=== PATIENT | male | born 1980 | race Caucasian/White ===

== ENCOUNTER 2016-06-01 23:40 | Emergency (ER) | payer OTHER ==
--- NOTE | 2016-06-02 03:09 | ED NURSING NOTES ---
Clinical Report - Nurses [facility] [address] [place] [address] 06/01/2016 23:41 Patient: SILVIA OVERTON TRIAGE Triage time 23:46 Jun 01 2016. Acuity: LEVEL 3. --23:49 Mikey Winter R.N. 23:45 06/01/16. BP: 65. HR: 63. RR: 18. O2 saturation: 100%. Temp: 98.2 F. Pain level now 02/10. --23:49 Mikey Winter R.N. Chief Complaint: ABDOMINAL PAIN. --03:48 Mikey Winter R.N. Weight: 63.5 kg stated. Height/Length: 68 inches Per Patient. BMI: 21.3. --23:48 Mikey Winter R.N. Medications None. --23:48 Mikey Winter R.N. Allergies Heparin. Icy Hot. Mushrooms. NSAIDs. Sulfa Antibiotics. --23:48 Mikey Winter R.N. History Arrived by private vehicle. ( Pt reports emesis since thursday, is poor historian, hx of asthma, pt complaing of RLQ abd pain is tearful, pt girlfriend states this has been going on for a week.). SOCIAL HX: Never smoker. History of drug use: marijuana. No alcohol use. --23:49 Mikey Winter R.N. ADDITIONAL SURGERIES: Colonoscopy. Cranial surgery. Craniotomy. Hernia Repair. --23:49 Mikey Winter R.N. Interventions ID band on patient. To treatment room. --23:49 Mikey Winter R.N. PHYSICAL ASSESSMENT GENERAL / NEURO / PSYCH: Alert. Oriented X 4. Appears in distress. RESPIRATORY: Respirations not labored. Breath sounds within normal limits. GI / : Abdominal tenderness in the right lower quadrant. Bowel sounds within normal limits. SKIN: Skin is warm and dry. --23:50 Mikey Winter R.N. NURSING PROGRESS NOTES engine monitor placed on patient. Patient gowned. Two patient identifiers checked. Side rails up x 1. Bed placed in lowest position. Brakes of chair on. Patient ready for evaluation- chart flagged and ED physician notified. --23:51 Mikey Winter R.N. 23:53 06/01/2016 Site #1 started via IV in the left antecubital space with an 18g angiocath, with aseptic technique and good blood return; one attempt. Blood drawn: rainbow set. Labeled in the presence of the patient. Saline lock flushed with saline (IV start Carlos). --23:58 Mikey Winter R.N. 23:59 06/01/2016 Started bag #1 1000 mL IV Fluids IV NS (Saline); bolus of 1000 mL wide open via site #1. Allergies verified and confirmed 5 rights. IV patency established. IV site checked: no pain, redness, or swelling. IV flushed thoroughly pre- and post-medication administration. --23:59 Mikey Winter R.N. 23:59 06/01/2016 Zofran (Ondansetron HCl) IVP 4 mg given over 2 minute(s) via site #1. Allergies verified and confirmed 5 rights. IV patency established. IV site checked: no pain, redness, or swelling. IV flushed thoroughly pre- and post-medication administration. IVP given by RN. --23:59 Mikey Winter R.N. ( Pt resting in bed, EKG performed, pt minimal relief from zofran). --00:14 Mikey Winter R.N. 00:36 06/02/2016 Morphine IVP 4 mg given over 2 minute(s) via site #1. Allergies verified, confirmed 5 rights and sedative warning given to the patient. IV patency established. IV site checked: no pain, redness, or swelling. IV flushed thoroughly pre- and post-medication administration. IVP given by RN. --00:36 Mikey Winter R.N. 01:13 06/02/2016 Dilaudid (HYDROmorphone HCl PF) IVP 1 mg given over 2 minute(s) via site #1. Allergies verified, confirmed 5 rights and sedative warning given to the patient. IV patency established. IV site checked: no pain, redness, or swelling. IV flushed thoroughly pre- and post-medication administration. IVP given by RN. --01:13 Mikey Winter R.N. 01:23 06/02/16. BP: 139/63. HR: 70. RR: 18. O2 saturation: 95%. --01:23 Mikey Winter R.N. 03:42 06/02/2016 SOLU-MEDROL (MethylPREDNISolone Sodium Succ) IVP 125 mg given over 2 minute(s) via site #1. Allergies verified and confirmed 5 rights. IV patency established. IV site checked: no pain, redness, or swelling. IV flushed thoroughly pre- and post-medication administration. IVP given by RN. --03:42 Mikey Winter R.N. DISPOSITION / DISCHARGE Departure time: 0343. Discharge instructions provided and reviewed with the patient. Reviewed medication(s) information. Prescription(s) given to the patient. Patient verbalized understanding. The patient was discharged by the physician. He was discharged home and accompanied by family. He left the Emergency Department ambulatory and via private vehicle. Family member driving. ( Pt ambulated on discharge steady on his feet pt verbalized understanding of discharge instructions and follow up care.). --03:47 Mikey Winter R.N. 03:45 06/02/16. BP: 144/68. HR: 94. RR: 18. O2 saturation: 95%. Temp: 97.9 F. Pain level now 9/10. --03:47 Mikey Winter R.N. 03:47 06/02/2016 Site #1 removed upon discharge. Bandaid applied. --03:47 Mikey Winter R.N. Locked/Released at 06/03/2016 3:00 by Mikey Winter R.N.
--- NOTE | 2016-06-02 03:09 | ED CLINICAL REPORT ---
Clinical Report - Physicians/Mid Levels [facility] [address] [place] [address] 06/01/2016 23:41 Patient: SILVIA OVERTON Time Seen: 23:51; initial patient contact. Arrived- By private vehicle. Historian- patient. HISTORY OF PRESENT ILLNESS Chief Complaint: ABDOMINAL PAIN. At its maximum, severity described as moderate. When seen in the E.D., severity described as moderate. Modifying factors. Not worsened by anything. Not relieved by anything. It is described as "pain". No radiation. It is described as located in the right lower quadrant and in the periumbilical area. This started about 3 days ago and is still present (persistent). It was gradual in onset and has been constant. The patient has had nausea, loss of appetite, vomiting and diarrhea. Similar symptoms previously: None. Recent medical care: Not recently seen/assessed. REVIEW OF SYSTEMS No constipation, difficulty with urination or pain with urination. He has had fever and chills. All systems otherwise negative, except as recorded above. PAST HISTORY SURGERY HX: Hernia repair. 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 Crohn's disease. Medications: None. Allergies: Heparin. Icy Hot. Mushrooms. NSAIDs. Sulfa Antibiotics. SOCIAL HISTORY Never smoker. History of drug use: marijuana. No alcohol use. ADDITIONAL NOTES The nursing notes have been reviewed with agreement regarding the chief complaint, PMH and patient medications and allergies. PHYSICAL EXAM Vital Signs: 06/02/2016 01:23 BP: 139/63. HR: 70. RR: 18. O2 saturation: 95%. 06/01/2016 23:45 BP: 65. HR: 63. RR: 18. O2 saturation: 100%. Temp: 98.2 F. Have been reviewed as normal. Appearance: Alert. Oriented X3. Appears to be in pain. Eyes: Eyes normal inspection. ENT: Dry mucous membranes present. CVS: Normal heart rate and rhythm. Heart sounds normal. Respiratory: No respiratory distress. Breath sounds normal. Abdomen: Soft. Moderate tenderness in the right lower quadrant with guarding and rebound tenderness present. Positive obturator and psoas sign. Bowel sounds normal. No organomegaly. No mass. Back: Normal inspection. No CVA tenderness. Skin: Skin warm and dry. Normal skin color. No rash. Extremities: No lower extremity edema. Neuro: Oriented X 3. LABS, X-RAYS, AND EKG EKG: EKG time: (0013). No acute process. No acute ischemia. Normal EKG. Normal sinus rhythm. Rate: 72. Normal P waves. Normal NARA. Normal QRS complex. Normal axis. Normal ST and T waves, QT and QTc. Prior EKG unavailable. The study has been interpreted contemporaneously by me. The study has been independently viewed by me. The EKG appears to be a good tracing. Interpretation time: 0013. Abdominal CT: No specific acute abnormality. Mild diffuse changes in small bowel likely enteritis. Study type: abdomen and pelvis. Abdominal CT performed with IV contrast. Prior studies were not available for comparison. The study was interpreted by the radiologist and discussed with the radiologist. Interpretation time: 02:35. Laboratory Tests: CBC w Diff: (CLARISSE: 06/01/2016 23:52) ( [facility] [place]:05) Final results Test Result Flag Units (Reference) WHITE BLOOD COUNT 7.9 K/uL (4.5-11.5) RED BLOOD COUNT 5.44 M/uL (4.50-5.90) HEMOGLOBIN 15.7 gm/dL (13.5-17.5) HEMATOCRIT 47.2 % (41.0-53.0) MEAN CELL VOLUME 87 fL (80-100) MEAN CORPUSCULAR HGB 29 pg (26-34) MEAN CORPUSCULAR HGB CONC 33 g/dL (31-37) RED CELL DISTRIBUTION WIDTH 12.6 % (11.6-14.8) PLATELET COUNT 273 K/uL (150-400) LYMPH % 38.1 % (25-40) MONO % 4.3 % (3-14) GRANULOCYTE % 57.6 CMP: (CLARISSE: 06/01/2016 23:52) ( [facility] 06/02/2016 00:14) Final results Test Result Flag Units (Reference) GLUCOSE 107 mg/dL (70-110) BUN 26 H mg/dL (7-18) CREATININE 1.1 mg/dL (0.6-1.3) Estimated GFR >60 mL/min Estimated GFR- >60 mL/min Note: Persistent reduction over 3 months in eGFR<60 mL/min/1.73 m2 defines CKD. Patients with eGFR values>=60 mL/min/1.73 m2 may also have CKD if evidence ofpersistent proteinuria. Additional information may be foundat www.kidney.org. SODIUM 142 mmol/L (136-145) POTASSIUM 4.4 mmol/L (3.5-5.1) CHLORIDE 103 mmol/L (98-107) CARBON DIOXIDE 32 mmol/L (21-32) CALCIUM 9.4 mg/dL (8.5-10.1) TOTAL PROTEIN 7.9 g/dL (6.4-8.2) ALBUMIN 4.1 g/dL (3.3-5.0) BILIRUBIN, TOTAL 0.4 mg/dL (0.0-1.0) ALKALINE PHOSPHATASE 56 U/L (46-116) AST (SGOT) 20 U/L (15-37) ALT (SGPT) 19 U/L (12-78) . PROGRESS AND PROCEDURES Course of Care: 06/02/2016 01:23 BP: 139/63. HR: 70. RR: 18. O2 saturation: 95%. Vital Signs: have been reviewed as normal. Disposition: Discharged home in good and improved condition. Condition: good. CLINICAL IMPRESSION Acute viral gastroenteritis with dehydration. Crohn's disease in the small intestine with acute abdominal pain. INSTRUCTIONS Prescription Medications: Zofran (orally disintegrating tablets) 4 mg: take 1 orally every 6 hours as needed for nausea and vomiting. Dispense ten (10). No refill. Substitution is permissible. Dicyclomine 20 mg tablets: take 1 orally every 6 hours as needed for abdominal cramps or abdominal discomfort. Dispense thirty (30). No refill Budesonide EC 3 mg 1 PO TID Disp # 45 No refills. Follow-up: Follow up with your doctor in about two days. Call for an appointment. Screening today revealed the patient's blood pressure to be in the pre-hypertensive range. The patient should follow up with a primary care provider for blood pressure management. (Electronically signed by Donaldo Villegas Dr. 06/02/2016 3:16)
--- NOTE | 2016-06-02 03:09 | ED CLINICAL REPORT ---
Clinical Report - Physicians/Mid Levels [facility] [address] [place] [address] 06/01/2016 23:41 Patient: SILVIA OVERTON Time Seen: 23:51; initial patient contact. Arrived- By private vehicle. Historian- patient. HISTORY OF PRESENT ILLNESS Chief Complaint: ABDOMINAL PAIN. At its maximum, severity described as moderate. When seen in the E.D., severity described as moderate. Modifying factors. Not worsened by anything. Not relieved by anything. It is described as "pain". No radiation. It is described as located in the right lower quadrant and in the periumbilical area. This started about 3 days ago and is still present (persistent). It was gradual in onset and has been constant. The patient has had nausea, loss of appetite, vomiting and diarrhea. Similar symptoms previously: None. Recent medical care: Not recently seen/assessed. REVIEW OF SYSTEMS No constipation, difficulty with urination or pain with urination. He has had fever and chills. All systems otherwise negative, except as recorded above. PAST HISTORY SURGERY HX: Hernia repair. 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 Crohn's disease. Medications: None. Allergies: Heparin. Icy Hot. Mushrooms. NSAIDs. Sulfa Antibiotics. SOCIAL HISTORY Never smoker. History of drug use: marijuana. No alcohol use. ADDITIONAL NOTES The nursing notes have been reviewed with agreement regarding the chief complaint, PMH and patient medications and allergies. PHYSICAL EXAM Vital Signs: 06/02/2016 01:23 BP: 139/63. HR: 70. RR: 18. O2 saturation: 95%. 06/01/2016 23:45 BP: 65. HR: 63. RR: 18. O2 saturation: 100%. Temp: 98.2 F. Have been reviewed as normal. Appearance: Alert. Oriented X3. Appears to be in pain. Eyes: Eyes normal inspection. ENT: Dry mucous membranes present. CVS: Normal heart rate and rhythm. Heart sounds normal. Respiratory: No respiratory distress. Breath sounds normal. Abdomen: Soft. Moderate tenderness in the right lower quadrant with guarding and rebound tenderness present. Positive obturator and psoas sign. Bowel sounds normal. No organomegaly. No mass. Back: Normal inspection. No CVA tenderness. Skin: Skin warm and dry. Normal skin color. No rash. Extremities: No lower extremity edema. Neuro: Oriented X 3. LABS, X-RAYS, AND EKG EKG: EKG time: (0013). No acute process. No acute ischemia. Normal EKG. Normal sinus rhythm. Rate: 72. Normal P waves. Normal NARA. Normal QRS complex. Normal axis. Normal ST and T waves, QT and QTc. Prior EKG unavailable. The study has been interpreted contemporaneously by me. The study has been independently viewed by me. The EKG appears to be a good tracing. Interpretation time: 0013. Abdominal CT: No specific acute abnormality. Mild diffuse changes in small bowel likely enteritis. Study type: abdomen and pelvis. Abdominal CT performed with IV contrast. Prior studies were not available for comparison. The study was interpreted by the radiologist and discussed with the radiologist. Interpretation time: 02:35. Laboratory Tests: CBC w Diff: (CLARISSE: 06/01/2016 23:52) ( [facility] [place] 06/02/2016 [facility]:05) Final results Test Result Flag Units (Reference) WHITE BLOOD COUNT 7.9 K/uL (4.5-11.5) RED BLOOD COUNT 5.44 M/uL (4.50-5.90) HEMOGLOBIN 15.7 gm/dL (13.5-17.5) HEMATOCRIT 47.2 % (41.0-53.0) MEAN CELL VOLUME 87 fL (80-100) MEAN CORPUSCULAR HGB 29 pg (26-34) MEAN CORPUSCULAR HGB CONC 33 g/dL (31-37) RED CELL DISTRIBUTION WIDTH 12.6 % (11.6-14.8) PLATELET COUNT 273 K/uL (150-400) LYMPH % 38.1 % (25-40) MONO % 4.3 % (3-14) GRANULOCYTE % 57.6 CMP: (CLARISSE: 06/01/2016 23:52) ( [facility] 06/02/2016 00:14) Final results Test Result Flag Units (Reference) GLUCOSE 107 mg/dL (70-110) BUN 26 H mg/dL (7-18) CREATININE 1.1 mg/dL (0.6-1.3) Estimated GFR >60 mL/min Estimated GFR- >60 mL/min Note: Persistent reduction over 3 months in eGFR<60 mL/min/1.73 m2 defines CKD. Patients with eGFR values>=60 mL/min/1.73 m2 may also have CKD if evidence ofpersistent proteinuria. Additional information may be foundat www.kidney.org. SODIUM 142 mmol/L (136-145) POTASSIUM 4.4 mmol/L (3.5-5.1) CHLORIDE 103 mmol/L (98-107) CARBON DIOXIDE 32 mmol/L (21-32) CALCIUM 9.4 mg/dL (8.5-10.1) TOTAL PROTEIN 7.9 g/dL (6.4-8.2) ALBUMIN 4.1 g/dL (3.3-5.0) BILIRUBIN, TOTAL 0.4 mg/dL (0.0-1.0) ALKALINE PHOSPHATASE 56 U/L (46-116) AST (SGOT) 20 U/L (15-37) ALT (SGPT) 19 U/L (12-78) . PROGRESS AND PROCEDURES Course of Care: 06/02/2016 01:23 BP: 139/63. HR: 70. RR: 18. O2 saturation: 95%. Vital Signs: have been reviewed as normal. Disposition: Discharged home in good and improved condition. Condition: good. CLINICAL IMPRESSION Acute viral gastroenteritis with dehydration. Crohn's disease in the small intestine with acute abdominal pain. INSTRUCTIONS Prescription Medications: Zofran (orally disintegrating tablets) 4 mg: take 1 orally every 6 hours as needed for nausea and vomiting. Dispense ten (10). No refill. Substitution is permissible. Dicyclomine 20 mg tablets: take 1 orally every 6 hours as needed for abdominal cramps or abdominal discomfort. Dispense thirty (30). No refill Budesonide EC 3 mg 1 PO TID Disp # 45 No refills. Follow-up: Follow up with your doctor in about two days. Call for an appointment. Screening today revealed the patient's blood pressure to be in the pre-hypertensive range. The patient should follow up with a primary care provider for blood pressure management. (Electronically signed by Donaldo Villegas Dr. 06/02/2016 3:16)
--- NOTE | 2016-06-02 03:10 | ED ORDER SUMMARY ---
..... Patient: SILVIA OVERTON OrderSheet [facility] VisitID: [id number] [address] [place] [address] 36y, M Registration Date/Time: 06/01/2016 ORDER SHEET Weight: 63.5 kg (stated) Allergies: Heparin, Icy Hot, Mushrooms, NSAIDs, Sulfa Antibiotics GENERAL ORDERS: CBC w Diff Urgent (23:55 06/01/2016 JDeElena R.N. verbal order read back to Jennie Troncoso) (3:25 JDeElena R.N.) CMP Urgent (23:55 06/01/2016 JDeElena R.N. verbal order read back to Jennie Troncoso) (3:25 JDeElena R.N.) UA-Culture if indicated Urgent (23:55 06/01/2016 JDeElena R.N. verbal order read back to Jennie Troncoso) (1:26 DBeyer R.N.) CBC w Diff Urgent (00:00 06/02/2016 DBeyer R.N. per protocol) (3:25 JDeElena R.N.) CMP Urgent (00:00 06/02/2016 DBeyer R.N. per protocol) (3:25 JDeElena R.N.) Amylase Urgent (00:00 06/02/2016 DBeyer R.N. per protocol) (3:28 CFalkner R.N.) Lipase Urgent (00:00 06/02/2016 DBeyer R.N. per protocol) (3:28 CFalkner R.N.) Cardiac Panel Stat (00:00 06/02/2016 DBeyer R.N. per protocol) (3:28 CFalkner R.N.) EKG - ER Stat (00:14 06/02/2016 DBeyer R.N. per protocol) (0:14 DBeyer R.N.) CT Abd/Pel w Cont (No) (/1.1) Urgent (01:00 06/02/2016 Jennie Troncoso) (1:33 RFay) MEDICATION ORDERS: IV FLUIDS: IV NS with Normal Saline 1 Liter: initial bolus 1000 mL (1000 mL/hr), then 1000 mL/hr for X1 (NOW) (23:55 06/01/2016 Gold Garrido verbal order read back to Jennie Troncoso) (23:59 DBeyer R.N.) Zofran IV 4 mg (NOW) (23:55 06/01/2016 Gold Garrido verbal order read back to Jennie Troncoso) (23:59 DBeyer R.N.) IV Saline Lock (23:55 06/01/2016 Gold Garrido verbal order read back to Jennie Troncoso) (23:58 DBeyer R.N.) Morphine IV 4 mg (HIGH ALERT MEDICATION, NOW) (00:28 06/02/2016 Jennie Troncoso) (0:36 DBeyer R.N.) Dilaudid IV 1 mg (HIGH ALERT MEDICATION, NOW) (01:02 06/02/2016 Jennie Troncoso) (1:13 DBeyer R.N.) Solu-MEDROL IV 125 mg (NOW) (03:05 06/02/2016 Jennie Troncoso) (3:42 DBeyer R.N.) ORDER SHEET NOTES: [Electronically signed by Donaldo Villegas Dr. (03:16 06/02/2016)] [Electronically signed by Mikey Winter R.N. (03:00 06/03/2016)] [Electronically locked/signed by Mikey Winter R.N. (03:00 06/03/2016)]
--- NOTE | 2016-06-02 03:10 | ED ORDER SUMMARY ---
..... Patient: SILVIA OVERTON OrderSheet [facility] VisitID: [id number] [address] [place] [address] 36y, M Registration Date/Time: 06/01/2016 ORDER SHEET Weight: 63.5 kg (stated) Allergies: Heparin, Icy Hot, Mushrooms, NSAIDs, Sulfa Antibiotics GENERAL ORDERS: CBC w Diff Urgent (23:55 06/01/2016 JDeElena R.N. verbal order read back to Jennie Troncoso) (3:25 JDeElena R.N.) CMP Urgent (23:55 06/01/2016 JDeElena R.N. verbal order read back to Jennie Troncoso) (3:25 JDeElena R.N.) UA-Culture if indicated Urgent (23:55 06/01/2016 JDeElena R.N. verbal order read back to Jennie Troncoso) (1:26 DBeyer R.N.) CBC w Diff Urgent (00:00 06/02/2016 DBeyer R.N. per protocol) (3:25 JDeElena R.N.) CMP Urgent (00:00 06/02/2016 DBeyer R.N. per protocol) (3:25 JDeElena R.N.) Amylase Urgent (00:00 06/02/2016 DBeyer R.N. per protocol) (3:28 CFalkner R.N.) Lipase Urgent (00:00 06/02/2016 DBeyer R.N. per protocol) (3:28 CFalkner R.N.) Cardiac Panel Stat (00:00 06/02/2016 DBeyer R.N. per protocol) (3:28 CFalkner R.N.) EKG - ER Stat (00:14 06/02/2016 DBeyer R.N. per protocol) (0:14 DBeyer R.N.) CT Abd/Pel w Cont (No) (/1.1) Urgent (01:00 06/02/2016 Jennie Troncoso) (1:33 RFay) MEDICATION ORDERS: IV FLUIDS: IV NS with Normal Saline 1 Liter: initial bolus 1000 mL (1000 mL/hr), then 1000 mL/hr for X1 (NOW) (23:55 06/01/2016 Gold Garrido verbal order read back to Jennie Troncoso) (23:59 DBeyer R.N.) Zofran IV 4 mg (NOW) (23:55 06/01/2016 Gold Garrido verbal order read back to Jennie Troncoso) (23:59 DBeyer R.N.) IV Saline Lock (23:55 06/01/2016 Gold Garrido verbal order read back to Jennie Troncoso) (23:58 DBeyer R.N.) Morphine IV 4 mg (HIGH ALERT MEDICATION, NOW) (00:28 06/02/2016 Jennie Troncoso) (0:36 DBeyer R.N.) Dilaudid IV 1 mg (HIGH ALERT MEDICATION, NOW) (01:02 06/02/2016 Jennie Troncoso) (1:13 DBeyer R.N.) Solu-MEDROL IV 125 mg (NOW) (03:05 06/02/2016 Jennie Troncoso) (3:42 DBeyer R.N.) ORDER SHEET NOTES: [Electronically signed by Donaldo Villegas Dr. (03:16 06/02/2016)] [Electronically signed by Mikey Winter R.N. (03:00 06/03/2016)] [Electronically locked/signed by Mikey Winter R.N. (03:00 06/03/2016)]
--- NOTE | 2016-06-02 07:43 | DIAGNOSTIC IMAGING REPORT ---
PROCEDURE: CT ABD/PELVIS WITH CONTRAST CLINICAL INDICATION: Abdominal pain, nausea and vomiting x3 days, initial encounter TECHNIQUE: 125 ml of Isovue 300 were injected intravenously and axial images were obtained of the entire abdomen and pelvis with sagittal and coronal reformations. COMPARISON: None. FINDINGS: ABDOMEN: Lung bases are clear. Heart size is normal. Liver, gallbladder, pancreas, spleen, adrenal glands, kidneys and abdominal aorta are normal. PELVIS: Normal appendix. There are mildly distended fluid-filled loops of small bowel with fluid in the ascending colon suggestive of enterocolitis. There is no pelvic mass, inflammatory changes or free fluid. Osseous structures are unremarkable. IMPRESSION: 1. Findings suggestive of enterocolitis 2. Preliminary report submitted by Dr. Ansari, [facility] radiology All CT scans at this facility use dose modulation, iterative reconstruction, and/or weight-based dosing when appropriate to reduce radiation dose to as low as reasonably achievable.
--- NOTE | 2016-06-03 03:00 | ED MED RECONCILIATION SUMMARY ---
Patient: SILVIA OVERTON Medication Reconciliation Report [facility] VisitID: [id number] [address] [place] [address] 36y, M Registration Date/Time: 06/01/2016 Weight: 63.5 kg Height/Length: 68 in. BMI: 21.3 ALLERGIES: Heparin, Icy Hot, Mushrooms, NSAIDs, Sulfa Antibiotics The patient's Home Medications are listed below: NONE. The source(s) of the original Home Medication information: Not obtained. The following Medications were given to the patient in the Emergency Department: IV NS IV Fluids bolus 1000 mL wide open, administered: 06/01/2016 11:59:00 PM Zofran [IVP] IVP 4 mg, administered: 06/01/2016 11:59:00 PM Morphine [IVP] IVP 4 mg, administered: 06/02/2016 12:36:00 AM Dilaudid [IVP] IVP 1 mg, administered: 06/02/2016 1:13:00 AM SOLU-MEDROL [IVP] IVP 125 mg, administered: 06/02/2016 3:42:00 AM The following Medications were prescribed to the patient: Zofran (orally disintegrating tablets) 4 mg: take 1 orally every 6 hours as needed for nausea and vomiting. Dispense ten (10). No refill. Substitution is permissible. -- Donaldo Villegas Dr. Budesonide EC 3 mg1 PO TIDDisp # 45No refills. -- Donaldo Villegas Dr. Dicyclomine 20 mg tablets: take 1 orally every 6 hours as needed for abdominal cramps or abdominal discomfort. Dispense thirty (30). No refill -- Donaldo Villegas Dr.
--- NOTE | 2016-06-03 03:00 | ED MAR SUMMARY ---
..... Medication Administration Record Formerly [facility] [address] [place] [address] Patient: SILVIA OVERTON Visit ID: [id number] 36y, M Weight: 63.5 kg Height/Length: 68 in BMI: 21.3 ALLERGIES: Heparin, Icy Hot, Mushrooms, NSAIDs, Sulfa Antibiotics Start 23:59 06/01/2016 Mikey Winter R.N. Medication Administered: IV NS (SALINE), Dose: IV Fluids, Bolus: 1000 mL wide open, Dispensed: 1000 mL bag, Site: #1 left AC. Medication Ordered: IV NS with Normal Saline 1 Liter: initial bolus 1000 mL (1000 mL/hr), then 1000 mL/hr for X1 (NOW). Given 23:59 06/01/2016 Mikey Winter R.N. Medication Administered: ZOFRAN [IVP] (ONDANSETRON HCL), Dose: 4 mg IVP over 2 minute(s), Site: #1 left AC. Medication Ordered: Zofran IV 4 mg (NOW). Given 00:36 06/02/2016 Mikey Winter R.N. Medication Administered: MORPHINE [IVP], Dose: 4 mg IVP over 2 minute(s), Site: #1 left AC. Medication Ordered: Morphine IV 4 mg (HIGH ALERT MEDICATION, NOW). Given 01:13 06/02/2016 Mikey Winter R.N. Medication Administered: DILAUDID [IVP] (HYDROMORPHONE HCL PF), Dose: 1 mg IVP over 2 minute(s), Site: #1 left AC. Medication Ordered: Dilaudid IV 1 mg (HIGH ALERT MEDICATION, NOW). Given 03:42 06/02/2016 Mikey Winter R.N. Medication Administered: SOLU-MEDROL [IVP] (METHYLPREDNISOLONE SODIUM SUCC), Dose: 125 mg IVP over 2 minute(s), Site: #1 left AC. Medication Ordered: Solu-MEDROL IV 125 mg (NOW).
--- NOTE | 2016-06-03 03:00 | ED MED RECONCILIATION SUMMARY ---
Patient: SILVIA OVERTON Medication Reconciliation Report [facility] VisitID: [id number] [address] [place] [address] 36y, M Registration Date/Time: 06/01/2016 Weight: 63.5 kg Height/Length: 68 in. BMI: 21.3 ALLERGIES: Heparin, Icy Hot, Mushrooms, NSAIDs, Sulfa Antibiotics The patient's Home Medications are listed below: NONE. The source(s) of the original Home Medication information: Not obtained. The following Medications were given to the patient in the Emergency Department: IV NS IV Fluids bolus 1000 mL wide open, administered: 06/01/2016 11:59:00 PM Zofran [IVP] IVP 4 mg, administered: 06/01/2016 11:59:00 PM Morphine [IVP] IVP 4 mg, administered: 06/02/2016 12:36:00 AM Dilaudid [IVP] IVP 1 mg, administered: 06/02/2016 1:13:00 AM SOLU-MEDROL [IVP] IVP 125 mg, administered: 06/02/2016 3:42:00 AM The following Medications were prescribed to the patient: Zofran (orally disintegrating tablets) 4 mg: take 1 orally every 6 hours as needed for nausea and vomiting. Dispense ten (10). No refill. Substitution is permissible. -- Donaldo Villegas Dr. Budesonide EC 3 mg1 PO TIDDisp # 45No refills. -- Donaldo Villegas Dr. Dicyclomine 20 mg tablets: take 1 orally every 6 hours as needed for abdominal cramps or abdominal discomfort. Dispense thirty (30). No refill -- Donaldo Villegas Dr.
--- NOTE | 2016-06-03 03:00 | ED DISCHARGE INSTRUCTIONS ---
Patient: SILVIA OVERTON General Instructions [facility] VisitID: [id number] [address] [place] [address] 36y, M Registration Date/Time: 06/01/2016 Acute viral gastroenteritis with dehydration. Crohn's disease in the small intestine with acute abdominal pain. INSTRUCTIONS Prescription Medications: Zofran (orally disintegrating tablets) 4 mg: take 1 orally every 6 hours as needed for nausea and vomiting. Dispense ten (10). No refill. Substitution is permissible. Dicyclomine 20 mg tablets: take 1 orally every 6 hours as needed for abdominal cramps or abdominal discomfort. Dispense thirty (30). No refill Budesonide EC 3 mg 1 PO TID Disp # 45 No refills. Follow-up: Follow up with your doctor in about two days. Call for an appointment. Screening today revealed the patient's blood pressure to be in the pre-hypertensive range. The patient should follow up with a primary care provider for blood pressure management. ADDITIONAL INFORMATION Viral Gastroenteritis (6Yr-Adult) Gastroenteritis is another name for thestomach flu.It is most often caused by a virus that affects the stomach and intestinal tract. Symptoms include stomach cramping and fever, vomiting and/or diarrhea, and can last from 2 to 7 days. The danger from repeated vomiting or diarrhea is dehydration. This is the loss of too much water and minerals from the body. When this occurs, body fluids must be replaced. Antibiotics are not effective for this illness, but simple home treatment will be helpful. Home Care If symptoms are severe, rest at home for the next 24 hours. Avoid tobacco, caffeine, and alcohol use, which can worsen symptoms. Acetaminophen (Tylenol) or ibuprofen (Motrin, Advil) may be usedfor fever or pain unless another medication was prescribed. NOTE: If you have chronic liver or kidney disease or ever had a stomach ulcer or GI bleeding, talk with your doctor before using these medicines. Aspirin should never be used in anyone under 18 years of age who is ill with a fever. It may cause severe liver damage. If medicines for diarrhea or vomiting were prescribed, be sure they are takenonly as directed. If vomiting, drink small amounts of clear fluids (such as water, sports drinks, clear sodas) at frequent intervals to prevent dehydration. Start with 1 to 2 tablespoons every 10 minutes. Once vomiting stops, follow these guidelines: During The First 12 To 24 Hours follow the diet below: Beverages: Sport drinks like Gatorade, soft drinks without caffeine; gisselle jimmy, mineral water (plain or flavored), decaffeinated tea and coffee. Soups: Clear broth, consomm and bouillon Desserts: Plain gelatin (Jell-O), Popsicles and fruit juice bars. During The Next 24 Hours you may add the following to the above: Hot cereal, plain toast, bread, rolls, crackers Plain noodles, rice, mashed potatoes, chicken noodle or rice soup Unsweetened canned fruit (avoid pineapple), bananas Limit fat intake to less than 15 grams per day by avoiding margarine, butter, oils, mayonnaise, sauces, gravies, fried foods, peanut butter, meat, poultry, and fish. Limit fiber; avoid raw or cooked vegetables, fresh fruits (except bananas), and bran cereals. Limit caffeine and chocolate. Do not use spices or seasonings except salt. During The Next 24 Hours The patient can gradually resume a normal diet as symptoms lessen. Preventing Spread Hand washing with soap and water is the best way to prevent the spread of viruses. Caregivers should wash their hands before andafter touching the sick person. The sick person, as well as everyone in the family,should wash their hands after using the toilet and before meals. Clean the toilet after each use. People with diarrhea should not prepare food for others. If you are preparing your own foods, wash your hands before and after. Follow Up with your doctor as advised. Call your doctor if you are not improving over the next 2 to 3 days. If a stool (diarrhea) sample was taken, you may call in 2 days (or as directed) for the results. Get Prompt Medical Attention if any of the following occur: Increasing abdominal pain Continued vomiting (unable to keep liquids down) Frequent diarrhea (more than 5 times a day) Blood in vomit or stool (black or red color) Dark urine, reduced urine output, or extreme thirst Weakness, dizziness, fainting Drowsiness, confusion, stiff neck, or seizure Fever of 100.4F (38C) oral or higher, not better with fever medication New rash Crohns Disease Crohns disease is a chronic inflammation of the intestinal tract that comes and goes. Crohns is a form of Inflammatory Bowel Disease. The exact cause is not known. Chronic diarrhea may alternate with constipation. During a symptom flare, there may be intense abdominal pain and fever. Mucus, blood or pus may appear in the stool. This is a chronic illness and episodes of inflammation come and go over time. When the disease is not active, there are usually no symptoms. Home Care: DIET: Talk to your doctor or ask for a referral to a dietitian to develop a meal plan that works for you. Learn what foods worsen your symptoms. Keeping a food diary may help with this. Eating smaller meals at more frequent intervals (4-5 times a day). Avoid greasy or fried foods. Limit consumption of milk and milk products (butter, margarine, cream sauces). If you are lactose intolerant ask your doctor to advise a digestive supplement. During a flare-up of your symptoms, avoid high fiber foods such as nuts, corn, popcorn and [place] vegetables. MEDICATIONS: For mild to moderate cramping and diarrhea, you may use Imodium AD ([id number]), unless another medicine was prescribed. For acute flares of your illness, prescription medicines can be prescribed. Contact your doctor if this is needed. Follow Up with your doctor as advised by your staff. Support Groups for persons Crohns disease can be a source of useful information on how others are coping with this illness. They are available in person, on the phone, or via the Internet. Contact the following resources for more information. Croh[employer] [place] 166.114.3121 www.ccfa.org National Digestive Diseases Information Clearinghouse (NDDIC) 916.294.5160 www.digestive.niddk.nih.gov Get Prompt Medical Attention if any of the following occur: Fever of 100.4F(38C) or higher, or as directed by your healthcare provider Abdominal pain that does not respond to usual measures Mucus, pus or blood in the stool (dark or bright red) Repeated vomiting Abdominal swelling and pain that does not go away after a few hours Ondansetron Oral disintegrating tablet What is this medicine? ONDANSETRON (on SHELBY se jeronimo) is used to treat nausea and vomiting caused by chemotherapy. It is also used to prevent or treat nausea and vomiting after surgery. How should I use this medicine? These tablets are made to dissolve in the mouth. Do not try to push the tablet through the foil backing. With dry hands, peel away the foil backing and gently remove the tablet. Place the tablet in the mouth and allow it to dissolve, then swallow. While you may take these tablets with water, it is not necessary to do so. Talk to your industrial designer regarding the use of this medicine in children. Special care may be needed. What side effects may I notice from receiving this medicine? Side effects that you should report to your doctor or health career services coordinator as soon as possible: allergic reactions like skin rash, itching or hives, swelling of the face, lips, or tongue breathing problems dizziness fast or irregular heartbeat feeling faint or lightheaded, falls fever and chills swelling of the hands and feet tightness in the chest Side effects that usually do not require medical attention (report to your doctor or health career services coordinator if they continue or are bothersome): constipation or diarrhea headache What may interact with this medicine? Do not take this medicine with any of the following medications: -apomorphine -cisapride -dofetilide -dronedarone -pimozide -thioridazine -ziprasidone This medicine may also interact with the following medications: -carbamazepine -phenytoin -rifampicin -tramadol -other medicines that prolong the QT interval (cause an abnormal heart rhythm) What if I miss a dose? If you miss a dose, take it as soon as you can. If it is almost time for your next dose, take only that dose. Do not take double or extra doses. Where should I keep my medicine? Keep out of the reach of children. Store between 2 and 30 degrees C (36 and 86 degrees F). Throw away any unused medicine after the expiration date. What should I tell my health care provider before I take this medicine? They need to know if you have any of these conditions: heart disease history of irregular heartbeat liver disease low levels of magnesium or potassium in the blood an unusual or allergic reaction to ondansetron, granisetron, other medicines, foods, dyes, or preservatives or trying to get breast-feeding What should I watch for while using this medicine? Check with your doctor or health career services coordinator as soon as you can if you have any sign of an allergic reaction. Dicyclomine Hydrochloride Oral tablet What is this medicine? DICYCLOMINE (dye ASHLEEOrlando amilcar castañeda) is used to treat bowel problems including irritable bowel syndrome. How should I use this medicine? Take this medicine by mouth with a glass of water. Follow the directions on the prescription label. It is best to take this medicine on an empty stomach, 30 minutes to 1 hour before meals. Take your medicine at regular intervals. Do not take your medicine more often than directed. Talk to your industrial designer regarding the use of this medicine in children. Special care may be needed. While this drug may be prescribed for children as young as 6 months of age for selected conditions, precautions do apply. Patients over 65 years old may have a stronger reaction and need a smaller dose. What side effects may I notice from receiving this medicine? Side effects that you should report to your doctor or health career services coordinator as soon as possible: agitation, nervousness, confusion difficulty swallowing dizziness, drowsiness fast or slow heartbeat hallucinations pain or difficulty passing urine Side effects that usually do not require medical attention (report to your doctor or health career services coordinator if they continue or are bothersome): constipation headache nausea or vomiting sexual difficulty What may interact with this medicine? amantadine antacids benztropine digoxin disopyramide medicines for allergies, colds and breathing difficulties medicines for alzheimer's disease medicines for anxiety or sleeping problems medicines for depression or psychotic disturbances medicines for diarrhea medicines for pain metoclopramide tegaserod What if I miss a dose? If you miss a dose, take it as soon as you can. If it is almost time for your next dose, take only that dose. Do not take double or extra doses. Where should I keep my medicine? Keep out of the reach of children. Store at room temperature below 30 degrees C (86 degrees F). Protect from light. Throw away any unused medicine after the expiration date. What should I tell my health care provider before I take this medicine? They need to know if you have any of these conditions: difficulty passing urine esophagus problems or heartburn glaucoma heart disease, or previous heart attack myasthenia gravis prostate trouble stomach infection, or obstruction ulcerative colitis an unusual or allergic reaction to dicyclomine, other medicines, foods, dyes, or preservatives or trying to get breast-feeding What should I watch for while using this medicine? You may get drowsy, dizzy, or have blurred vision. Do not drive, use machinery, or do anything that needs mental alertness until you know how this medicine affects you. To reduce the risk of dizzy or fainting spells, do not sit or stand up quickly, especially if you are an older patient. Alcohol can make you more drowsy, avoid alcoholic drinks. Stay out of bright light and wear sunglasses if this medicine makes your eyes more sensitive to light. Avoid extreme heat (hot tubs, saunas). This medicine can cause you to sweat less than normal. Your body temperature could increase to dangerous levels, which may lead to heat stroke. Antacids can stop this medicine from working. If you get an upset stomach and want to take an antacid, make sure there is an interval of at least 1 to 2 hours before or after you take this medicine. Your mouth may get dry. Chewing sugarless gum or sucking hard candy, and drinking plenty of water may help. Contact your doctor if the problem does not go away or is severe. You have been given the following additional information: Gastroenteritis, Viral (6Y-Adult) Crohn's Disease Ondansetron Oral disintegrating tablet Dicyclomine Hydrochloride Oral tablet (Electronically signed by Donaldo Villegas Dr. 06/02/2016 3:16)
--- NOTE | 2016-06-03 03:00 | ED MAR SUMMARY ---
..... Medication Administration Record [facility] [address] [place] [address] Patient: SILVIA OVERTON Visit ID: [id number] 36y, M Weight: 63.5 kg Height/Length: 68 in BMI: 21.3 ALLERGIES: Heparin, Icy Hot, Mushrooms, NSAIDs, Sulfa Antibiotics Start 23:59 06/01/2016 Mikey Winter R.N. Medication Administered: IV NS (SALINE), Dose: IV Fluids, Bolus: 1000 mL wide open, Dispensed: 1000 mL bag, Site: #1 left AC. Medication Ordered: IV NS with Normal Saline 1 Liter: initial bolus 1000 mL (1000 mL/hr), then 1000 mL/hr for X1 (NOW). Given 23:59 06/01/2016 Mikey Winter R.N. Medication Administered: ZOFRAN [IVP] (ONDANSETRON HCL), Dose: 4 mg IVP over 2 minute(s), Site: #1 left AC. Medication Ordered: Zofran IV 4 mg (NOW). Given 00:36 06/02/2016 Mikey Winter R.N. Medication Administered: MORPHINE [IVP], Dose: 4 mg IVP over 2 minute(s), Site: #1 left AC. Medication Ordered: Morphine IV 4 mg (HIGH ALERT MEDICATION, NOW). Given 01:13 06/02/2016 Mikey Winter R.N. Medication Administered: DILAUDID [IVP] (HYDROMORPHONE HCL PF), Dose: 1 mg IVP over 2 minute(s), Site: #1 left AC. Medication Ordered: Dilaudid IV 1 mg (HIGH ALERT MEDICATION, NOW). Given 03:42 06/02/2016 Mikey Winter R.N. Medication Administered: SOLU-MEDROL [IVP] (METHYLPREDNISOLONE SODIUM SUCC), Dose: 125 mg IVP over 2 minute(s), Site: #1 left AC. Medication Ordered: Solu-MEDROL IV 125 mg (NOW).
== END 2016-06-02 03:43 | disposition home or self-care (01) ==
LOC: ED SRH 23:40
DX: A08.4 Viral intestinal infection, unspecified (principal); E86.0 Dehydration; K50.00 Crohn's disease of small intestine without complications; Z88.8 Allergy status to other drugs, medicaments and biological substances; Z88.2 Allergy status to sulfonamides; Z88.6 Allergy status to analgesic agent
CPT/HCPCS: 90004; 90100; 95059